=== PATIENT | female | born 1980 | race American Indian/Alaskan Native ===

== ENCOUNTER 2017-09-06 14:36 | Outpatient (CLI) | payer BC ==
--- NOTE | 2017-09-06 22:11 | XRay Report ---
FINAL REPORT EXAM: XR SPINE LUMBOSACRAL 2-3V HISTORY: LOW BACK PAIN TECHNIQUE: AP and lateral views of the lumbar spine PRIORS: None. FINDINGS: The vertebral body heights and disc spaces are well maintained. The alignment is normal. No evidence for spondylolysis or spondylolisthesis is seen. Pedicles are intact bilaterally at all levels. The paraspinal soft tissues are unremarkable. IMPRESSION: Normal lumbar spine.
== END 2017-09-06 14:37 | disposition home or self-care (01) ==
LOC: XRAY 14:36
PROVIDERS: ATTEND Nurse Practitioner
DX: M54.5 Low back pain (principal)
CPT/HCPCS: 72100

== ENCOUNTER 2020-01-11 09:14 | Outpatient (CLI) | payer BC ==
[2020-01-11 18:12] LABS: Hepatitis C Virus Antibody Nonreactive (NonReactive)
== END 2020-01-11 09:15 | disposition home or self-care (01) ==
LOC: LAB 09:14
PROVIDERS: ATTEND Obstetrics & Gynecology
DX: Z11.3 Encounter for screening for infections with a predominantly sexual mode of transmission (principal); Z01.419 Encounter for gynecological examination (general) (routine) without abnormal findings
CPT/HCPCS: 36415; 86592; 86689; 86706; 86803

== ENCOUNTER 2020-09-16 08:29 | Outpatient (CLI) | payer BC ==
--- NOTE | 2020-09-16 16:00 | Ultrasound Report ---
ULTRASOUND PELVIS INDICATION / CLINICAL INFORMATION: IRREGULAR MENSES. TECHNIQUE: Transabdominal. Duplex Color Doppler used: Yes. COMPARISON: None available FINDINGS: UTERUS: Present. - Appearance (if present): No significant abnormality. - Size in cm (if present): 9.7 x 3.9 x 5.9. - Endometrial Complex (if present): No significant abnormality.. Thickness in cm (if measured) = 0.5 - Mass lesions: None. - Additional findings: None. RIGHT ADNEXA: No significant ovarian cyst or mass. Normal color Doppler blood flow. LEFT ADNEXA: No significant ovarian cyst or mass. Normal color Doppler blood flow. URINARY BLADDER: No significant abnormality. FREE FLUID: None. ADDITIONAL FINDINGS: None. IMPRESSION: 1. No significant abnormality. Signer Name: Urbano Addison MD Signed: 09/16/2020 3:56 PM Workstation Name: [id number]
== END 2020-09-16 08:30 | disposition home or self-care (01) ==
LOC: US 08:29
PROVIDERS: ATTEND Obstetrics & Gynecology
DX: N92.6 Irregular menstruation, unspecified (principal)
CPT/HCPCS: 76856; 84402; 87529

== ENCOUNTER 2021-01-20 13:25 | Outpatient (CLI) | payer BC ==
[2021-01-20 15:21] LABS: Hepatitis C Virus Antibody Non-Reactive (NonReactive)
[2021-01-31 08:44] LABS: HIV-1 Antibody Differentiation SEE SCANNED RESULTS; HIV-2 Antibody Differentiation SEE SCANNED RESULTS
== END 2021-01-20 13:26 | disposition home or self-care (01) ==
LOC: LAB 13:25
PROVIDERS: ATTEND Obstetrics & Gynecology
DX: Z11.3 Encounter for screening for infections with a predominantly sexual mode of transmission (principal)
CPT/HCPCS: 36415; 86592; 86689; 86706; 86803; 87529